=== PATIENT | female | born 1965 | race Caucasian/White ===

== ENCOUNTER 2022-03-02 01:03 | Day surgery (SDC) | payer BC, SELFPAY ==
[2022-02-15 15:14] VITALS: BMI 25.9
--- NOTE | 2022-03-01 16:02 | PM.HPGS ---
History of Present Illness History of Present Illness Consent: Risks, benefits, and alternatives have been discussed and questions answered. Patient agrees to proceed with procedure. Chief complaint: hx of colon polyps Narrative: Miriam Venegas is a 56 year old female Referred for colon cancer screening. She has a history of polyps. Review of Systems Review of Systems: All systems reviewed & are unremarkable except as noted in HPI and below PMFSH Family History Family History Mother Family history of mental disorder Father Patient's father is in good health Sibling Patient's sister is in good health Other Family history of cardiovascular disease Social History Social History Smoking packs per day: 1 Smoking cigarettes per day: 20.0 Smoking status: Current every day smoker Tobacco type: cigarettes Second hand tobacco smoke exposure: No Alcohol intake: current Alcohol use details: 15-20 drinks monthly Substance use: current Substance use type: marijuana Other substance usage details: daily Living arrangements: with family Spiritual care concerns: No Meds Home Medications and Allergies Home Medications Medication Instructions Recorded Confirmed Type calcium carbonate-vitamin D3 1 tablet PO DAILY 02/15/22 03/02/22 History folic acid 1 mg PO DAILY 02/15/22 03/02/22 History glucosamine sulfate [Glucosamine] 500 mg PO DAILY 02/15/22 03/02/22 History methotrexate sodium 7.5 mg PO WEEKLY 02/15/22 03/02/22 History vitamins A,C,L-zlwj-yjfbqc 1 cap PO DAILY 02/15/22 03/02/22 History [PreserVision AREDS] Allergies Allergy/AdvReac Type Severity Reaction Status Date / Time No Known Allergies Allergy Verified 03/02/22 07:05 Exam Resp: Auscultation: clear to auscultation bilaterally Cardio: Rate: regular rate Rhythm: regular rhythm GI: GI Palp: Yes Soft to palpation and No Tenderness to palpation present (GI) Assessment and Plan Assessment and plan (1) Colon cancer screening: Code(s): Z12.11 - Encounter for screening for malignant neoplasm of colon Status: Acute Assessment and Plan: Colonoscopy with possible biopsy or polypectomy or cautery or injection of substances.
[2022-03-02 07:07] VITALS: BP 138/86; PULSE 85; RESP 17; TEMP 36.3; O2SAT 100; BMI 23.8
[2022-03-02] MEDS: LACTATED RINGERS 1,000 ML 150 ML IV CONT (07:15)
--- NOTE | 2022-03-02 08:28 | WPDANESEPPF ---
Anes - Initial Pre Proc Eval Procedure: Operation Date: 03/02/22 08:30 Proposed Procedures p Screening Colonoscopy - Sal Rojas MD Date/Time: 03/02/22 08:28 Surgeon: Sal Rojas MD Pre Op Diagnosis: hx of colon polyps Patient Data Age: 56 Gender: F Height: 1.7 m Weight: 69.2 kg Last Vital Signs Temp 97.4 F L 03/02/22 07:07 Pulse 85 03/02/22 07:07 Resp 17 03/02/22 07:07 BP 138/86 03/02/22 07:07 Pulse Ox 100 03/02/22 07:07 Allergies Allergy/AdvReac Type Severity Reaction Status Date / Time No Known Allergies Allergy Verified 03/02/22 07:05 Home Medications Medication Instructions Recorded Confirmed Type calcium carbonate-vitamin D3 1 tablet PO DAILY 02/15/22 03/02/22 History folic acid 1 mg PO DAILY 02/15/22 03/02/22 History glucosamine sulfate [Glucosamine] 500 mg PO DAILY 02/15/22 03/02/22 History methotrexate sodium 7.5 mg PO WEEKLY 02/15/22 03/02/22 History vitamins A,C,J-hmbs-mboksy 1 cap PO DAILY 02/15/22 03/02/22 History [PreserVision AREDS] Patient hx anesthesia problems: none Family hx anesthesia problems: none Results Review: All pre-operative results and documents have been reviewed as part of the pre-operative evaluation. [facility] Family History Family History Mother Family history of mental disorder Father Patient's father is in good health Sibling Patient's sister is in good health Other Family history of cardiovascular disease Social History Social History Smoking packs per day: 1 Smoking cigarettes per day: 20.0 Smoking status: Current every day smoker Tobacco type: cigarettes Second hand tobacco smoke exposure: No Alcohol intake: current Alcohol use details: 15-20 drinks monthly Substance use: current Substance use type: marijuana Other substance usage details: daily Living arrangements: with family Spiritual care concerns: No Anes - Eval Final PreProcedure Day of Procedure 03/02/22 08:28 Patient weight: normal Heart: regular rate and rhythm Lungs: clear to auscultation Airway: Mallampati scale class II Neurological: alert and oriented Last oral intake: >/= 8 hours ASA classification: II Emergent: no Anesthetic plan: proceed Anesthesia type and monitoring: general GIVS and standard monitoring Results Review: All pre-operative results and documents have been reviewed as part of the pre-operative evaluation. Informed Consent: The patient's anesthetic plan and its attendant risks and benefits were discussed with the patient/family/POA. Questions were solicited and answers provided to the satisfaction of the patient/family/POA.
[2022-03-02 08:51] VITALS: BP 94/58; PULSE 68; RESP 18; O2SAT 96
[2022-03-02 09:01] VITALS: BP 126/86; PULSE 66; RESP 18; O2SAT 100
[2022-03-02 09:11] VITALS: BP 131/82; PULSE 62; RESP 20; O2SAT 100
== END 2022-03-02 09:22 | disposition home or self-care (01) ==
PROVIDERS: PCP Internal Medicine; Visit Provider Internal Medicine Gastroenterology
PROC: 0DJD8ZZ Inspection of Lower Intestinal Tract, Via Natural or Artificial Opening Endoscopic (ICD-10-PCS; CPT 45378; principal; 2022-03-02 08:30)
DX: Z12.11 Encounter for screening for malignant neoplasm of colon (principal); K63.5 Polyp of colon; K62.1 Rectal polyp; K57.30 Diverticulosis of large intestine without perforation or abscess without bleeding; F17.210 Nicotine dependence, cigarettes, uncomplicated; F12.90 Cannabis use, unspecified, uncomplicated
CPT/HCPCS: 45380; 45385; 88305; J2704; J7120